=== PATIENT | male | born 1995 | race Caucasian/White ===

== ENCOUNTER → 2020-07-08 | Outpatient (CLI) | payer BC ==
--- NOTE | 2020-07-08 08:23 | RAD ---
Complete abdominal ultrasound 07/08/2020 7:47 AM Clinical History: Reason: ELEVATED LFTS / Spl. Instructions: / History: Technique: Ultrasound examination of the abdomen was performed, and multiple static images were subm itted for review. Comparison: None Findings: Pancreas is poorly visualized.. The visualized aorta and IVC are unremarkable. The liver is mildly enlarged measuring 20 cm longitudinally. There is diffuse increase in hepatic ech ogenicity consistent with hepatic steatosis. No focal hepatic lesions are seen. No intrahepatic bilia ry dilatation is identified. The gallbladder is normal in appearance without wall thickening, stones, or sludge. No pericholecysti c fluid is seen. The common bile duct measures 3 mm in diameter which is within normal limits. Spleen is top normal in size measuring 12 cm longitudinally The bilateral kidneys are normal in appearance without evidence of obstructive uropathy, nephrolithia sis, or focal renal lesion. Right kidney measures 12.3 cm in length. Left kidney measures 12.3 cm in length. Impression: Hepatomegaly and hepatic steatosis. Electronically signed by: Jason Mckeon MD (07/08/2020 8:20 AM) [id number]
== END ==
LOC: US 07:42
PROVIDERS: ATTEND Nurse Practitioner Adult Health
DX: R16.0 Hepatomegaly, not elsewhere classified (principal); K76.0 Fatty (change of) liver, not elsewhere classified; R94.5 Abnormal results of liver function studies
CPT/HCPCS: 76700